=== PATIENT | female | born 1995 | race Caucasian/White ===

== ENCOUNTER 2016-07-04 11:06 | Emergency (ER) | payer OTHER ==
[~2016-07-04] VITALS: Ht 167.6 cm; Wt 100.5 kg
[~2016-07-04 11:06] MED LIST: HYDR-3498 PO; HYDR-762 PO; IBUP-1542 PO; IBUP800T25 PO; MAG355OR15 PO; ONDA4TAB35 PO; OXYC-281 PO; PREN1TAB17 PO
[2016-07-04 11:09] VITALS: Ht 167.6 cm; Wt 100.5 kg
[2016-07-04] MEDS ORDERED: IBUP-1542 PO (11:24)
[2016-07-04] MEDS ORDERED: AMO500 PO (11:24)
--- NOTE | 2016-07-04 11:26 | ERD ---
ER Documentation Chief Complaint Date/Time DATE: 07/04/16 TIME: 11:25 Chief Complaint sore throat since friday HPI This 21-year-old female presents with a sore throat for the last 4 days. She possibly tactile fever. She is here with her son with similar symptoms. Denies cough, vomiting, shortness breath, chest pain, abdominal pain, urinary complaints, neck stiffness, rashes. ROS All systems reviewed and are negative except as per history of present illness. Medications Home Meds Active Scripts Ibuprofen* (Motrin*) 600 Mg Tab, 600 MG PO Q6H Y for PAIN, #14 TAB Prov:TITO REIS MD 07/04/16 Amoxicillin* (Amoxicillin*) 500 Mg Cap, 500 MG PO TID for 10 Days, CAP Prov:TITO REIS MD 07/04/16 Ibuprofen* (Motrin*) 600 Mg Tab, 600 MG PO Q6H Y for PAIN AND OR ELEVATED TEMP, #30 TAB Prov:DAVINA MANRIQUE PA-C 10/29/15 Hydrocodone Bit-Acetaminophen* ([place]*) 5-325 Mg Tab, 1 TAB PO Q6 Y for PAIN, # 15 TAB Prov:DAVINA MANRIQUE PA-C 10/29/15 Ondansetron Hcl* (Zofran* ODT) 4 mg -ODT Tab.disper, 4 MG PO Q8 Y for NAUSEA AND /OR VOMITING, #30 TAB Prov:HILL SANDOVAL NP 06/24/15 Hydrocodone Bit-Acetaminophen* ([place]*) 5-325 Mg Tab, 1 TAB PO Q6 Y for PAIN, # 20 TAB Prov:HILL SANDOVAL NP 06/24/15 Ibuprofen* (Motrin*) 800 Mg Tab, 800 MG PO Q6H Y for PAIN AND OR ELEVATED TEMP, #30 TAB Prov:JACKIE REN MD 05/21/15 Ondansetron Hcl* (Zofran* ODT) 4 mg -ODT Tab.disper, 4 MG PO Q6 Y for NAUSEA AND /OR VOMITING, #20 TAB Prov:JACKIE REN MD 05/21/15 Hydrocodone Bit-Acetaminophen* ([place]*) 10-325 Mg Tablet, 1 TAB PO Q6 Y for PAIN , #20 TAB Prov:JACKIE REN MD 05/21/15 Mag Hydrox/Al Hydrox/Simeth (Maal[place] Ms Liquid) 360 Ml Oral.susp, 2 TSP PO TID, # 24 OZ Prov:NASIR WORTHINGTON MD 04/10/15 Ibuprofen* (Motrin*) 600 Mg Tab, 600 MG PO Q8, #30 Prov:NASIR WORTHINGTON MD 04/10/15 Oxycodone Hcl-Acetaminophen* (Percocet*) 5-325 Mg Tablet, 1 TAB PO TID Y for PAIN AND/OR INFLAMMATION, #14 TAB Prov:NASIR WORTHINGTON MD 04/10/15 Reported Medications Vit-Iron Fumarate-FA ( Tablet) 1 Each Tablet, 1 TAB PO DAILY 05/03/13 Allergies Allergies: Coded Allergies: No Known Allergy (Verified , 04/10/15) PMhx/Soc History of Surgery: No Anesthesia Reaction: No Hx Neurological Disorder: No Hx Respiratory Disorders: No Hx Cardiac Disorders: No Hx Psychiatric Problems: No Hx Miscellaneous Medical Probl: Yes (GALLSTONES) Hx Alcohol Use: No Hx Substance Use: No Hx Tobacco Use: No Smoking Status: Never smoker Physical Exam Vitals Vital Signs Date Time Temp Pulse Resp B/P Pulse Ox O2 Delivery O2 Flow Rate FiO2 07/04/16 11:09 98.6 100 18 122/64 97 Physical Exam Const: [] Alert, [id number] per Head: Atraumatic Eyes: Normal Conjunctiva ENT: Normal External Ears, Nose and Mouth. There is some erythema in the posterior oropharynx with 2+ tonsils. Airways patent and uvula midline. Neck: Full range of motion..~ No meningismus. Resp: Clear to auscultation bilaterally Cardio: Regular rate and rhythm, no murmurs Abd: Soft, non tender, non distended. Normal bowel sounds Skin: No petechiae or rashes Back: No midline or flank tenderness Ext: No cyanosis, or edema Neur: Awake and alert Psych: Normal Mood and Affect Procedures/MDM This patient presents with URI symptoms and signs of pharyngitis. She will treated with amoxicillin and ibuprofen. No evidence of abscess, airway obstruction, hypoxemia. The patient was stable with no new complaints during the ER course. Clinically, there is no current evidence to suggest meningitis, sepsis, acute abdomen, pneumonia, acute coronary syndrome, pulmonary embolism, or any other emergent condition appearing to require further evaluation or hospitalization. The patient should certainly return for any new or worsening symptoms per the aftercare instructions. They should otherwise follow-up with her primary care doctor for reevaluation this week. Departure Diagnosis: Primary Impression: Sore throat Condition: Stable Patient Instructions: Pharyngitis, Strep (Presumed) Additional Instructions: Recheck for new or worsening symptoms or primary care doctor. TITO REIS MD Jul 04, 2016 11:26
== END 2016-07-04 11:30 | disposition home or self-care (01) ==
LOC: FTE 11:06
DX: J02.9 Acute pharyngitis, unspecified (principal)
CPT/HCPCS: 99283

== ENCOUNTER 2016-09-17 18:37 | Emergency (ER) | payer OTHER ==
[~2016-09-17] VITALS: Wt 102.3 kg
[~2016-09-17 18:37] MED LIST changes: +AMO500 PO
--- NOTE | 2016-09-17 20:50 | ERD ---
ER Documentation Chief Complaint Date/Time DATE: 09/17/16 TIME: 20:47 Chief Complaint audi breast swelling HPI This a 21-year-old female who presents to the emergency department today complaining of breast tenderness in both of her breast since last night. Patient states that she thinks she is as she took 2 home tests that were positive. 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 Denies any fevers or chills, vaginal bleeding, abdominal pain, nausea or vomiting ROS All systems reviewed and are negative except as per history of present illness. Medications Home Meds Active Scripts Acetaminophen* (Tylophen*) 500 Mg Capsule, 1 CAP PO Q6H Y for PAIN AND OR ELEVATED TEMP, #30 CAP Prov:FRANCE WESTFALL PA-C 09/17/16 Ibuprofen* (Motrin*) 600 Mg Tab, 600 MG PO Q6H Y for PAIN, #14 TAB Prov:TITO REIS MD 07/04/16 Amoxicillin* (Amoxicillin*) 500 Mg Cap, 500 MG PO TID for 10 Days, CAP Prov:TITO REIS MD 07/04/16 Ibuprofen* (Motrin*) 600 Mg Tab, 600 MG PO Q6H Y for PAIN AND OR ELEVATED TEMP, #30 TAB Prov:DAVINA MANRIQUE PA-C 10/29/15 Hydrocodone Bit-Acetaminophen* ([place]*) 5-325 Mg Tab, 1 TAB PO Q6 Y for PAIN, # 15 TAB Prov:DAVINA MANRIQUE PA-C 10/29/15 Ondansetron Hcl* (Zofran* ODT) 4 mg -ODT Tab.disper, 4 MG PO Q8 Y for NAUSEA AND /OR VOMITING, #30 TAB Prov:HILL SANDOVAL NP 06/24/15 Hydrocodone Bit-Acetaminophen* ([place]*) 5-325 Mg Tab, 1 TAB PO Q6 Y for PAIN, # 20 TAB Prov:HILL SANDOVAL NP 06/24/15 Ibuprofen* (Motrin*) 800 Mg Tab, 800 MG PO Q6H Y for PAIN AND OR ELEVATED TEMP, #30 TAB Prov:JACKIE REN MD 05/21/15 Ondansetron Hcl* (Zofran* ODT) 4 mg -ODT Tab.disper, 4 MG PO Q6 Y for NAUSEA AND /OR VOMITING, #20 TAB Prov:JACKIE REN MD 05/21/15 Hydrocodone Bit-Acetaminophen* ([place]*) 10-325 Mg Tablet, 1 TAB PO Q6 Y for PAIN , #20 TAB Prov:JACKIE REN MD 05/21/15 Mag Hydrox/Al Hydrox/Simeth (Maalox Ms Liquid) 360 Ml Oral.susp, 2 TSP PO TID, # 24 OZ Prov:NASIR WORTHINGTON MD 04/10/15 Ibuprofen* (Motrin*) 600 Mg Tab, 600 MG PO Q8, #30 Prov:NASIR WORTHINGTON MD 04/10/15 Oxycodone Hcl-Acetaminophen* (Percocet*) 5-325 Mg Tablet, 1 TAB PO TID Y for PAIN AND/OR INFLAMMATION, #14 TAB Prov:NASIR WORTHINGTON MD 04/10/15 Reported Medications Vit-Iron Fumarate-FA ( Tablet) 1 Each Tablet, 1 TAB PO DAILY 05/03/13 Allergies Allergies: Coded Allergies: No Known Allergy (Verified , 04/10/15) PMhx/Soc History of Surgery: No Anesthesia Reaction: No Hx Neurological Disorder: No Hx Respiratory Disorders: No Hx Cardiac Disorders: No Hx Psychiatric Problems: No Hx Miscellaneous Medical Probl: Yes (GALLSTONES) Hx Alcohol Use: No Hx Substance Use: No Hx Tobacco Use: No Physical Exam Vitals Vital Signs Date Time Temp Pulse Resp B/P Pulse Ox O2 Delivery O2 Flow Rate FiO2 09/17/16 19:33 99.4 90 20 123/77 100 Physical Exam Const: Obese, no acute distress Head: Atraumatic Eyes: Normal Conjunctiva ENT: Normal External Ears, Nose and Mouth. Neck: Full range of motion..~ No meningismus. Resp: Clear to auscultation bilaterally Cardio: Regular rate and rhythm, no murmurs Abd: Soft, non tender, non distended. Normal bowel sounds Breast: Bilateral breasts with no erythema or warmth. No drainage from nipple. No skin dimpling. No evidence of masses or lesions Skin: No petechiae or rashes Neur: Awake and alert Psych: Normal Mood and Affect Procedures/MDM This a 21-year-old female who presents the emergency department today complaining of bilateral breast tenderness. Patient indicated that she has missed her period and she has taken 2 tests at home that were positive. Patient was wanting to find out if she was . Patient was requesting an ultrasound. I explained to the patient that this was not warranted at this time. I did do a urine Urine test is positive On patient's physical exam there is no erythema or warmth on patient's breast. There is no drainage. She is afebrile and otherwise well-appearing. There is no skin dimpling. Do not feel the patient requires a breast ultrasound at this time. Low suspicion for mastitis, abscess, deep space infection. Patient symptoms at this time may be related to related changes versus fibrocystic changes. Patient was notified of positive test. She will be given a prescription for Tylenol for pain. She is also given a list of resources for [facility] [employer] and community clinics. At this time the patient is stable for discharge and outpatient management. Patient should follow up with their PCP in the next 1-2 days. They may return to the emergency department sooner for any persistent or worsening of symptoms. Patient understood and agreed with the plan. Departure Diagnosis: Primary Impression: Breast tenderness in female Condition: FRANCE Luo PA-C Sep 17, 2016 20:50
[2016-09-17] MEDS ORDERED: ACET500C5 PO (21:10)
[2016-09-17 21:28] VITALS: BP 127/71; PULSE 88; RESP 20; TEMP 98.7
== END 2016-09-17 21:29 | disposition home or self-care (01) ==
LOC: FTE 18:37
DX: O99.89 Other specified diseases and conditions complicating pregnancy, childbirth and the puerperium (principal); N64.89 Other specified disorders of breast; Z3A.00 Weeks of gestation of pregnancy not specified
CPT/HCPCS: 99283

== ENCOUNTER 2016-11-24 06:56 | Emergency (ER) | payer OTHER ==
[~2016-11-24] VITALS: Ht 157.5 cm; Wt 100.0 kg
[~2016-11-24 06:56] MED LIST changes: +ACET500C5 PO
[2016-11-24 06:59] VITALS: Ht 157.5 cm; Wt 100.0 kg
--- NOTE | 2016-11-24 07:50 | ERD ---
ER Documentation Chief Complaint Date/Time DATE: 11/24/16 TIME: 07:48 Chief Complaint pt bib self with c/o bilatteral ear pain starting last night HPI 21-year-old female who presents to the emergency room for bilateral ear pain and itchiness that started last night. She is 15 weeks . Denies chest pain, shoulder pain, abdominal pain/cramping, pelvic pain/cramping, back pain, vaginal discharge, vaginal bleeding. Denies headache, loss of consciousness, dizziness, blurry vision, changes in vision, photophobia, facial pain, throat pain, difficulty swallowing, neck pain , shoulder pain, chest pain, cough, hemoptysis, abdominal pain, abdominal cramping, vaginal bleeding, vaginal discharge, abdominal contractions, pelvic pain, pelvic cramping, back pain, loss of appetite, nausea, vomiting, hematochezia, diarrhea, constipation, urinary symptoms, bladder and bowel incontinences, extremity weakness, extremity tenderness, numbness or tingling sensation, difficulty walking, recent travel, recent exposure to illness, recent antibiotic use in the last 3 months, fever, chills. Allergy: No known drug allergies. PMH: Denies. Family medical history: Denies. AO LMP: August 02, 2016. Medications: vitamins. Surgery: Denies. Primary Social History: Not working at this time. Denies smoking, use of alcohol, use of illegal drugs. Not exposed to secondhand smoking. ROS All systems reviewed and are negative except as per history of present illness. Medications Home Meds Active Scripts Acetaminophen* (Tylophen*) 500 Mg Capsule, 1 CAP PO Q6H Y for PAIN AND OR ELEVATED TEMP, #20 CAP Prov:PASILABANSHANTIAR F 11/24/16 Amoxicillin* (Amoxicillin*) 500 Mg Cap, 500 MG PO TID for 7 Days, CAP Prov:PASILABAN,SHANTIAR F 11/24/16 Acetaminophen* (Tylophen*) 500 Mg Capsule, 1 CAP PO Q6H Y for PAIN AND OR ELEVATED TEMP, #30 CAP Prov:FRANCE WESTFALL PA-C 09/17/16 Ibuprofen* (Motrin*) 600 Mg Tab, 600 MG PO Q6H Y for PAIN, #14 TAB Prov:TITO REIS MD 07/04/16 Amoxicillin* (Amoxicillin*) 500 Mg Cap, 500 MG PO TID for 10 Days, CAP Prov:TITO REIS MD 07/04/16 Ibuprofen* (Motrin*) 600 Mg Tab, 600 MG PO Q6H Y for PAIN AND OR ELEVATED TEMP, #30 TAB Prov:DAVINA MANRIQUE PA-C 10/29/15 Hydrocodone Bit-Acetaminophen* ([place]*) 5-325 Mg Tab, 1 TAB PO Q6 Y for PAIN, # 15 TAB Prov:DAVINA MANRIQUE PA-C 10/29/15 Ondansetron Hcl* (Zofran* ODT) 4 mg -ODT Tab.disper, 4 MG PO Q8 Y for NAUSEA AND /OR VOMITING, #30 TAB Prov:HILL SANDOVAL NP 06/24/15 Hydrocodone Bit-Acetaminophen* ([place]*) 5-325 Mg Tab, 1 TAB PO Q6 Y for PAIN, # 20 TAB Prov:HILL SANDOVAL NP 06/24/15 Ibuprofen* (Motrin*) 800 Mg Tab, 800 MG PO Q6H Y for PAIN AND OR ELEVATED TEMP, #30 TAB Prov:JACKIE REN MD 05/21/15 Ondansetron Hcl* (Zofran* ODT) 4 mg -ODT Tab.disper, 4 MG PO Q6 Y for NAUSEA AND /OR VOMITING, #20 TAB Prov:JACKIE REN MD 05/21/15 Hydrocodone Bit-Acetaminophen* ([place]*) 10-325 Mg Tablet, 1 TAB PO Q6 Y for PAIN , #20 TAB Prov:JACKIE REN MD 05/21/15 Mag Hydrox/Al Hydrox/Simeth (Maalox Ms Liquid) 360 Ml Oral.susp, 2 TSP PO TID, # 24 OZ Prov:NASIR WORTHINGTON MD 04/10/15 Ibuprofen* (Motrin*) 600 Mg Tab, 600 MG PO Q8, #30 Prov:NASIR WORTHINGTON MD 04/10/15 Oxycodone Hcl-Acetaminophen* (Percocet*) 5-325 Mg Tablet, 1 TAB PO TID Y for PAIN AND/OR INFLAMMATION, #14 TAB Prov:NASIR WORTHINGTON MD 04/10/15 Reported Medications Vit-Iron Fumarate-FA ( Tablet) 1 Each Tablet, 1 TAB PO DAILY 05/03/13 Allergies Allergies: Coded Allergies: No Known Allergy (Verified , 04/10/15) PMhx/Soc History of Surgery: No Anesthesia Reaction: No Hx Neurological Disorder: No Hx Respiratory Disorders: No Hx Cardiac Disorders: No Hx Psychiatric Problems: No Hx Miscellaneous Medical Probl: Yes (Gallstones, 3 months ) Hx Alcohol Use: No Hx Substance Use: No Hx Tobacco Use: No Smoking Status: Never smoker Physical Exam Vitals Vital Signs Date Time Temp Pulse Resp B/P Pulse Ox O2 Delivery O2 Flow Rate FiO2 11/24/16 06:59 98.2 71 16 119/70 100 Physical Exam CONSTITUTIONAL: Well-appearing; well-nourished; in no apparent distress. HEAD: Normocephalic; atraumatic. EYES: Conjunctiva clear, sclera non-icteric, EOM intact. PERRL Ears: Left ear: Hearing intact. EACs clear, TM is erythematous. No signs of effusion. No obstructions, no erythema, no discharges. Right ear: Hearing intact. EACs clear, TM is erythematous. No signs of effusion. No obstructions, no erythema, no discharges. Nose: No obstructions. No polyps. No external lesions. Mucosa non-inflamed. Frontal sinus is non-tender to palpation. Maxillary sinus is non-tender to palpation. MOUTH: Moist mucous membranes, no lesion, no obstructions, no vesicles, no thrush, patent airway Throat: Uvula in midline. Right tonsil is +1 with no erythema, no exudate. Left tonsil is +1 with no erythema, no exudate. Tolerating secretions well. Good gag reflex. Patent airway. Neck: Supple, without lesions, bruits, or adenopathy. No mass. Thyroid non- enlarged and non-tender to palpation. CHEST: Symmetrical chest. Respirations even and not labored. No retractions noted. CARDIOVASCULAR: Normal S1, S2. RRR. No murmurs, gallops. RESPIRATORY: Normal chest excursion with respiration; breath sounds clear and equal bilaterally; no wheezes, rhonchi, or rales. Breathing even and unlabored. Speaking in clear, full, and complete sentences w/ ease. ABDOMEN: Normal bowel sounds normal. Soft, round, non-distended, non-guarding, no tenderness, no rebound, no organomegaly, no masses, no pulsating abdominal mass. No hernia. No peritoneal signs. : No CVA tenderness. BACK: Symmetrical shoulder. Spine is midline without deformity, tenderness. No evidence of trauma or deformity. PELVIS: Stable pelvis. No evidence of trauma or deformity. MUSCULOSKELETAL: Normal gait and station. No misalignment, asymmetry, crepitation, defects, tenderness, masses, effusions, decreased range of motion, instability, atrophy or abnormal strength or tone in the head, neck, spine, ribs , pelvis or extremities. No calf tenderness. NEUROVASCULAR: Distal pulses are present. Pedal pulse are present, equal, and normal. Capillary refills are < 2 seconds. NEUROLOGIC: Alert and oriented x4. Speaks full and clear sentences. Cranial Nerves II-XII normal. Sensation to pain, touch, and proprioception normal. Grossly unremarkable. No neurologic deficits. Romberg test is negative. PSYCHOLOGICAL: The patients mood and manner are appropriate. No hallucinations , delusions. Not SI. Not HI. Has the capacity to decide for self SKIN: Normal for age and ethnicity; warm; dry; good turgor; no apparent lesions or exudates. No rashes, hives, discoloration. Intact. Procedures/MDM Examination: Please see physical examination. Disease process, medical treatment was explained to the patient and family member. They verbalized understanding and agreed with the medical treatment, and follow-up care. Re-evaluation: Denies headache, dizziness, blurry vision, neck pain, shoulder pain, chest pain, abdominal pain/cramping/pelvic pain/cramping/back pain/back cramping/shoulder pain, nausea, vomiting. Denies vaginal bleeding/vaginal discharge. No episode of emesis here in the emergency department. Romberg test is negative. Consultation: None. Differential diagnosis: Otitis externa versus otitis media versus mastoiditis versus tympanic pain rupture Medical decision makin-year-old female who presents to the emergency room for bilateral ear pain and itchiness that started last night. She is 15 weeks . Denies chest pain, shoulder pain, abdominal pain/cramping, pelvic pain/cramping, back pain, vaginal discharge, vaginal bleeding. Patient's complaint, patient's history about her complaint, my physical findings, my reevaluation are consistent with my final diagnosis of otitis media bilateral. Medications prescribed are the following: Amoxicillin. Tylenol. Patient and family member are made aware of the side effects and adverse reactions of the medications prescribed. Instructed on when to seek emergent and medical attention in case allergic/anaphylactic reactions or severe side effects and or adverse reactions to medications. Patient and family member verbalized understanding. Patient instructed Instructed to follow-up with his PCP in 24-48 hours. Instructed to Call 911 for chest pain, shortness of breath. Advised to come back here in ED as soon as possible for severity of symptoms which includes but not limited to: any new symptoms; shortness of breath/difficulty of breathing; cardiovascular changes; severe gastrointestinal symptoms; signs and symptoms of bleeding and or infection; signs of compartment syndrome/neurovascular changes; neurological changes/deficits. Patient and family member verbalized understanding. Upon discharge, patient is alert and oriented x 4, speaks full and clear sentences, denies pain, has no neurological deficits, has no neurovascular deficits, difficulty of breathing. Breathing even and unlabored. Lung sounds are clear to auscultation. Not in distress. Appears comfortable. Ambulatory with steady gait. Appears satisfied with care provided here in ED. Departure Diagnosis: Primary Impression: Otitis media Condition: Good Additional Instructions: Patient instructed Instructed to follow-up with his PCP in 24-48 hours. Instructed to Call 911 for chest pain, shortness of breath. Advised to come back here in ED as soon as possible for severity of symptoms which includes but not limited to: any new symptoms; shortness of breath/difficulty of breathing; cardiovascular changes; severe gastrointestinal symptoms; signs and symptoms of bleeding and or infection; signs of compartment syndrome/neurovascular changes; neurological changes/deficits. Patient and family member verbalized understanding. SHAI CASSIDY November 24, 2016 07:50
[2016-11-24] MEDS ORDERED: AMO500 PO (07:51)
[2016-11-24] MEDS ORDERED: ACET500C5 PO (07:52)
== END 2016-11-24 08:06 | disposition home or self-care (01) ==
LOC: FTE 06:56
DX: O99.89 Other specified diseases and conditions complicating pregnancy, childbirth and the puerperium (principal); H66.93 Otitis media, unspecified, bilateral; Z3A.15 15 weeks gestation of pregnancy
CPT/HCPCS: 99283

== ENCOUNTER → 2017-09-06 | Emergency (ER) | END | disposition left against medical advice (07) ==